=== PATIENT | male | born 1975 ===

== ENCOUNTER 2017-03-08 08:35 | Day surgery (SDC) | payer OTHER ==
[~2017-03-08 08:35] MED LIST: Buffered Lidocaine 0.9% SYRIN* 5 ML/SYR SYRINGE INTRADERM ONE; Dexamethasone IV* 4 MG/ML 1 ML (4 MG) IV SLOW PU ONE; Famotidine IV* 10 MG/ML 2 ML (20 mg) IV ONE
[2017-03-08] MEDS ORDERED: Famotidine IV* 10 MG/ML 2 ML (20 mg) ONE (08:42)
[2017-03-08] MEDS ORDERED: Clindamycin 900 MG IVPREMIX(* 900 MG/50 ML SDV IV ONE ×2 (08:42→08:49)
[2017-03-08] MEDS ORDERED: Buffered Lidocaine 0.9% SYRIN* 5 ML/SYR SYRINGE ONE (08:42)
[2017-03-08] MEDS ORDERED: Dexamethasone IV* 4 MG/ML 1 ML (4 MG) ONE (08:42)
[2017-03-08] MEDS ORDERED: fentaNYL* 50 MCG/ML 2 ML VIAL (100 MCG VIAL) ONE ×2 (10:03→13:39)
[2017-03-08] MEDS ORDERED: Midazolam* 1 MG/ML 5 ML VIAL (5 MG) ONE (10:03)
[2017-03-08] MEDS ORDERED: Atracurium* 10 MG/ML 10 ML VIAL ONE (10:03)
[2017-03-08] MEDS ORDERED: Propofol* 10 MG/ML 20 ML BTL IV PUSH ONE (10:04)
[2017-03-08] MEDS ORDERED: Ketorolac INJ* 30 MG/ML 1 ML VIAL ONE (10:04)
[2017-03-08] MEDS ORDERED: ROPIVACAINE 5 MG/ML 30 ML BTL (0.5%) ONE (10:04)
[2017-03-08] MEDS ORDERED: Ondansetron INJ* 2 MG/ML VIAL ONE (10:04)
[2017-03-08] MEDS ORDERED: Bupivacaine 0.25% SDV* 30 ML ONE (11:00)
[2017-03-08] MEDS ORDERED: Scopolamine 1.5 mg* PATCH TRANSDERM PRN (12:14)
[2017-03-08] MEDS ORDERED: Ondansetron INJ* 2 MG/ML VIAL IV PRN (12:14)
[2017-03-08] MEDS ORDERED: DiMENhydriNATE IV* 50 MG/ML VIAL IV PUSH PRN (12:14)
[2017-03-08] MEDS ORDERED: oxyCODONE TAB* 5 MG TAB ONE ×2 (13:39→14:10)
[2017-03-08] MEDS: oxyCODONE TAB* 5 MG TAB PO PRN ×2 (13:43→14:12)
[2017-03-08] MEDS: fentaNYL* 50 MCG/ML 2 ML VIAL (100 MCG VIAL) IV PRN ×2 (13:45→14:07)
[2017-03-08] MEDS ORDERED: HYDROmorphone INJ* 2 MG/ML CARPUJECT SYRINGE ONE (14:10)
[2017-03-08] MEDS: HYDROmorphone INJ* 2 MG/ML CARPUJECT SYRINGE IV PRN ×3 (14:14→14:53)
[2017-03-08 15:21] VITALS: BP 128/65
--- NOTE | 2017-03-09 07:18 | OP ---
CC: PCP OPERATIVE REPORT: DATE OF OPERATION: 03/08/17 - [facility] DATE OF : 75 SURGEON: Flex Koroma MD MOBILE EQUIPMENT MECHANIC: OSCAR Corley An medical billing assistant was needed for the entirety of the case to help with positioning, retraction, and utilized throughout all portions of the case. ANESTHESIOLOGIST: Dr. Thomas. ANESTHESIA: General with interscalene block. PRE-OP DIAGNOSIS: Left shoulder failed rotator cuff repair. POST-OP DIAGNOSES: 1. Left shoulder failed rotator cuff repair. 2. Biceps instability. OPERATIVE PROCEDURES: Left shoulder arthroscopy with: 1. Glenohumeral debridement including debridement of the subscapularis. 2. Revision rotator cuff repair in a double row fashion. 3. Revision subacromial decompression. 4. Subpectoral biceps tenodesis. COMPLICATIONS: None. ESTIMATED BLOOD LOSS: Minimal. IMPLANTS USED: Two 4.75 Healicoils with one MultiFix as well as one 2.8 mm Q- FIX anchor. INDICATIONS: Daniel is a 41-year-old male who has had left shoulder pain for several years. He underwent rotator cuff repair by Dr. Neumann in January 2016 and had persistent pain afterwards. Dr. Neumann did a rotator cuff repair with subacromial decompression. He has had so much pain. He is on oxycodone at baseline. He has pain with lifting and lying down. He is in pain almost all the time and does a lot of labor-intensive work. He said the shoulder never improved after surgery. He has an MRI that confirms partial-thickness retear of the rotator cuff. He has failed conservative treatment. Risks and benefits of surgery were discussed at length included, but are not limited to, bleeding, infection, damage to nerves, vessels, surrounding structures, wound nonhealing, persistent pain, need for further surgery, scarring, stiffness, incomplete relief of symptoms, risks of anesthesia, persistent pain, risk of retear, risk of DVT. He has elected to proceed. DESCRIPTION OF PROCEDURE: The patient was greeted in the preoperative area by the attending surgeon. Correct extremity was marked and consent was confirmed. The patient then underwent an interscalene block by anesthesiologist, after which he was brought to the operating suite and placed in a supine position on the operating room table. He then underwent general anesthesia with endotracheal intubation, after which the patient was then positioned in the right lateral decubitus position with an axillary roll. All bony prominences were padded. His left arm was draped unsterilely with 10 pounds of traction. The left shoulder was then prepped and draped in the usual sterile fashion beginning with chlorhexidine soap, scrub and alcohol wipe, and a final prep with ChloraPrep. After appropriate surgical pause indicating side and site of procedure, and administration of antibiotics, a standard posterolateral portal was made sharply using 11 blade. The scope was introduced into the joint and the joint was examined. There were grade 0 to 1 changes of the glenohumeral joint. The anterior and posterior labrum had mild fraying. Superior labrum was intact; however, the biceps was subluxed anteriorly. It was starting to cause partial tearing of the subscapularis. The inferior recess was intact. The anterior portal was made in outside-in fashion and shaver was then used to debride the anterior and posterior labrum and mobilize the biceps, which had evidence of synovitis and again it was subluxed. The biceps was then tenotomized using arthroscopic scissors. The helped to also demonstrate the tear that was the previous repair, which was very anterior about the supraspinatus. The sutures were visible and found to have lost tension. Once the debridement was complete, attention was directed into the subacromial space. The scope was repositioned in the subacromial space and there was abundant bursa that was present. The lateral portal was made in an outside-in fashion and the shaver was used to debride the bursal tissue. The undersurface of the acromion was identified and skeletonized using the electrocautery device. The hemostasis was obtained using the electrocautery device. This demonstrated previous acromioplasty, which had small irregular areas, especially an anterior lateral spur. The 4-0 octavio was then used to flatten this out and remove the anterior lateral spur to prevent any further damage to the rotator cuff. All fluid and debris was removed. Once this was done, the attention was directed to the rotator cuff. The bursal side was intact; however, anteriorly, the sutures were visible. This was again a very anterior tear, but the probe was used to probe the tissue and there was tearing evident just posterior to the previous repair as well. The 11 blade was then used to complete the tear and the shaver was used to debride the rotator cuff. The greater tuberosity was then skeletonized using the electrocautery device. The arthroscopic octavio was then used to remove calcified layer and allow for good decortication of the bone. The previous sutures were carefully excised as well. The cuff tissue was then carefully mobilized. Once it was determined the extent of the tear, 2 anchors were placed through separate stab incisions. These were 4.75 Healicoil anchors, placed with excellent purchase. The awl that was used to do this was also used to make a small microfracture to stimulate bloody bone healing about the rest of the greater tuberosity. The sutures were then passed in a horizontal mattress configuration and they were tied down using arthroscopic knot- tying technique. Two of the knots were removed. We clipped one of the sutures. The remaining sutures were then packed through a second anchor, which was a knotless anchor placed in the lateral row for double-row fixation and excellent purchase. Final images were obtained. The cuff was reapproximated and restored. The shoulder was taken through a range of motion and was found to be intact. This was also compressed to the footprint. All fluid and debris were removed from the shoulder. The wounds were copiously irrigated with sterile saline and attention was directed to the biceps. The bed was airplaned to the left side. The anterior aspect of the shoulder was prepped with ChloraPrep. An incision was made in line with the biceps tendon encompassing the inferior two-thirds of the pec tendon. The soft tissue was carefully dissected to expose the pec using blunt dissection. The biceps groove was identified. The fascia was carefully released and then the bicipital groove was palpated. Right-angle clamp was then used to remove the biceps from the groove and brought through the wound, which demonstrated abundant synovitis and inflammation as well as mild tendinosis. The bicipital groove was then prepped in the usual fashion with electrocautery device, the red ball rasp as well as the osteotome. The Q-Fix guide was then used to drill unicortically and the Q-Fix was deployed with excellent purchase. The sutures were then passed through the biceps tendon approximately 1 cm proximal to the musculotendinous junction. The excess stump was then sharply excised and the biceps was then shuttled back into the wound and tied down. The wounds were copiously irrigated with sterile saline. The anterior wound was closed in layers of 2-0 Vicryl and 3-0 Monocryl. The portals were closed with 3-0 nylon in interrupted fashion. The anterior wound was injected with 20 cc of 0.25% Marcaine. Sterile dressings were applied. A Cryo/Cuff as well as an UltraSling were applied. He was awoken from anesthesia and transferred to the PACU in stable condition. POSTOPERATIVE PLAN: He will be nonweightbearing. He will have no active range of motion for 6 weeks. He will start physical therapy at 4 weeks. He will be discharged on pain medications as well as antibiotics. DVT prophylaxis was considered, but deferred due to no previous personal or family history. I will see the patient back in 10 to 14 days. [id number]/[facility] #: [id number] [facility] HOSPITALYaakov
[2017-03-11] MEDS ORDERED: Scopolomine PATCH Remove* 1 NOTE MISC PATCH OFF ONE (12:15)
== END 2017-03-08 15:23 | disposition home or self-care (01) ==
LOC: OR 08:35
PROVIDERS: ATTEND Orthopaedic Surgery
DX: S46.012D Strain of muscle(s) and tendon(s) of the rotator cuff of left shoulder, subsequent encounter (principal); M25.312 Other instability, left shoulder; F41.9 Anxiety disorder, unspecified; Y92.9 Unspecified place or not applicable; X58.XXXD Exposure to other specified factors, subsequent encounter
CPT/HCPCS: A9270-GY; C1713; C1776; J1100; J1170; J1885; J2250; J2405; J2704; J2795; J3010